=== PATIENT | female | born 1990 | race Caucasian/White ===

== ENCOUNTER → 2017-04-10 | Outpatient (CLI) | payer BC | END | disposition home or self-care (01) | LOC: C.PAPS 12:02 | PROVIDERS: ATTEND Physician Assistant | DX: Z01.419 Encounter for gynecological examination (general) (routine) without abnormal findings (principal) ==

== ENCOUNTER 2021-06-15 14:43 | Inpatient (IN) ==
[2021-06-15] MEDS ORDERED: BETAMETH SOD PHOS/ACETATE IA 6 MG/ML ONE (15:02)
--- NOTE | 2021-06-15 15:13 | History & Physical Report ---
Date of Service June 15, 2021 Assessment & Plan (1) Vaginal bleeding: Plan: Vaginal bleeding - significant amount of bleeding, gushed through speculum and then continued to trickle from vagina after exam. Will give 1 dose steroids for lung maturity. Discussed recommendation for urgently with patient. Reviewed RBA, consent signed. Recommend delivery now due to severity of vaginal bleeding. Concerned for placental abruption vs vasa previa. History of Present Illness Chief Complaint: vaginal bleeding Primary Care Provider: Shona Duran PA-C 30yo @ 34 09/09, presented emergently to L&D after gush of blood with coughing. Uncomplicated , until diagnosed 2 days ago with COVID - symptoms coughing and body aches. No fever. + movement, not feeling ctx. No leaking of clear fluid. Home Medications Medication Instructions Recorded Confirmed Type prenat.vits,janelle,rok-mvnq-qmoyp 1 tab PO DAILY 06/15/21 06/15/21 History Patient History Surgical History (Updated 06/15/21 @ 15:13 by Cintia Bruce RN) No history of previous surgery Family History Grandfather Diabetes Social History (Updated 12/05/20 @ 13:20 by Lora Trivedi) Smoking Status: Never smoker marital status: Single marital status details: FOB: [birth year] (31) [phone] Current Living Situation: Significant Other Current Living Situation Comment: lives with FOB and 1 dog. 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 There is large amount of pooling of blood, bright red, during exam. Constitutional: WD/WN, vitals as above Respiratory: normal respiratory effort, lungs clear to auscultation no respiratory distress Cardiovascular: Rate/Rhythm: regular rate and regular rhythm Gastrointestinal (Abdomen): Inspection/Auscultation: abdomen normal to inspection Percussion/Palpation: abdomen soft; abdomen nontender Gravid. Nontender. Skin: no rashes, warm and dry Psychiatric: A+Ox3, euthymic affect Results & Data ([facility]) Vital Signs (Past 12 Hours) Vital Signs Pulse BP 06/15/21 15:00 118 H 120/88 Coding Level of Care Code None Diagnoses Vaginal bleeding N93.9
[2021-06-15] MEDS ORDERED: LACTATED RINGER'S 1,000 ML IV SCH ×2 (15:15→18:41)
[2021-06-15] MEDS ORDERED: BETAMETH SOD PHOS/ACETATE IA 6 MG/ML IM STA (15:15)
[2021-06-15] MEDS ORDERED: SODIUM CHLORIDE 0.9% 250 ML IV PRN ×2 (15:30→16:39)
[2021-06-15] MEDS ORDERED: ceFAZolin 2000MG 2,000 MG/15 ML SYR IV SCH (15:30)
[2021-06-15 15:32] LABS: Basophils # (auto) 0.01 K/uL (0-0.2); Basophils % (auto) 0.1 %; Eosinophils # (auto) 0.01 K/uL (0-0.5); Eosinophils % (auto) 0.1 %; Hematocrit (blood only) 36.7 % (37-47); Hemoglobin 12.4 g/dL (12.0-16.0); Immature Granulocytes # (auto) 0.02 K/uL (0.00-0.02); Immature Granulocytes % (auto) 0.3 %; Lymphocytes # (auto) 1.92 K/uL (1.2-3.4); Lymphocytes % (auto) 24.6 %; Mean Corpuscular Hemoglobin 30.5 pg (25-34); Mean Corpuscular Hgb Conc 33.8 g/dL (32-36); Mean Corpuscular Volume 90.2 fL (80-100); Mean Platelet Volume 11.5 fL (7.4-10.4); Monocytes % (auto) 15.3 %; Neutrophils # (auto) 4.66 K/uL (1.4-6.5); Neutrophils % (auto) 59.6 %; Platelet Count 247 K/uL (130-400); RDW Coefficient of Variation 13.2 % (11.5-14.5); RDW Standard Deviation 43.3 fL (36.4-46.3); Red Blood Count 4.07 M/uL (4.2-5.4); White Blood Count 7.82 K/uL (4.8-10.8)
[2021-06-15] MEDS ORDERED: CITRIC ACID/SODIUM CITRATE 15 ML UDC PO SCH (15:45)
[2021-06-15] MEDS ORDERED: MoRPHine SULFATE PF 1 MG/ML 10 ML AMP/VIAL ONE (15:48)
[2021-06-15] MEDS ORDERED: fentaNYL citrate 100 MCG/2 ML VIAL ONE (15:48)
[2021-06-15 15:52] LABS: Albumin Globulin Ratio 0.9 (0.9-2); Albumin Level 2.9 gm/dl (3.4-5.0); BUN Creatinine Ratio 8.2 (10-20); Bilirubin,Total 0.3 mg/dl (0.2-1.0); Calcium 8.2 mg/dl (8.5-10.1); Creatinine Clr Calc Pharmacy 155.2 ml/min; Est GFR (Non-African American) 121.7 ml/min; Globulin 3.3 gm/dl (2.5-4.0); Potassium 4.1 mmol/L (3.5-5.1); Total Protein 6.2 gm/dl (6.0-8.3)
--- NOTE | 2021-06-15 15:52 | Anesthesiology Consultation ---
Date of Service June 15, 2021 Assessment & Plan Chart Review Chart Review: Acceptable Risk for Surgery and Patient NOT seen in Pre Admission Testing Consults Requested none History Surgery Operation Date: 06/15/21 15:30 Proposed Procedures p Section in LD - Dawna Salcido DO Andrew Height/Weight Height: 5 ft 4 in Weight: 100.244 kg Allergies Allergy/AdvReac Type Severity Reaction Status Date / Time No Known Allergies Allergy Verified 06/15/21 15:39 Medications Home Medications Medication Instructions Recorded Confirmed Last Taken prenat.vits,janelle,nqy-dfpo-koxkw 1 tab PO DAILY 06/15/21 06/15/21 06/14/21 22:00 Active Medications Generic Name Dose Route Start Last Admin Trade Name Freq PRN Reason Stop Dose Admin Lactated Ringer's 1,000 mls @ 999 mls/hr 06/15/21 15:15 06/15/21 15:05 Lr IV 06/15/21 16:15 999 mls/hr .Q1H1M ULYSSES Administration Past Family History Family History Grandfather Diabetes Past Surgical History Surgical History No history of previous surgery Social History Smoking Status: Never smoker Hx Alcohol Use: No Hx Substance Use: No Physical Exam Vital Signs Last Vital Signs Pulse 92 H 06/15/21 15:11 BP 113/76 06/15/21 15:11 Pulse Ox 92 06/15/21 15:09 Testing Laboratory Results 06/15/21 15:17
[2021-06-15 16:01] LABS: Fibrinogen 394 mg/dl (184-400); INR 0.9 (0.9-1.1); Partial Thromboplastin Time 25.8 Seconds (21.0-31.0); Prothrombin Time 9.2 Seconds (9.0-12.0)
[2021-06-15] MEDS ORDERED: ONDANSETRON INJ 2 MG/ML 2 ML VIAL ONE (16:37)
[2021-06-15] MEDS ORDERED: OXYTOCIN 10 UNITS/ML 10ML VIAL ONE (16:59)
[2021-06-15 17:11] LABS: Base Excess Cord Venous Blood -3.7 mEq/L (-7.7-1.9); Cord Venous Blood HCO3 26 mmol/L (18.4-26.8); Cord Venous Blood PCO2 64 mmHg (30.4-57.2); Cord Venous Blood pH 7.22 (7.20-7.44)
[2021-06-15 17:12] LABS: Base Excess Cord Arterial Bld -6.7 mEq/L (-9-1.8); CO2 Cord Arterial Blood 57 mmHg (39.1-73.5); HCO3 Cord Arterial Blood 22 mmol/L (19.7-28.5); PO2 Cord Arterial Blood 16 mmHg (4.1-31.7)
[2021-06-15 17:17] LABS: Oxygen Sat Cord Arterial Blood < 60.0 % (<60)
[2021-06-15 17:20] LABS: Cord Venous Blood PO2 < 10 mmHg (14.1-43.3)
[2021-06-15 17:21] LABS: O2 Saturation Cord Venous Bld < 60.0 % (<68)
--- NOTE | 2021-06-15 17:46 | Operative Report ---
PG Post Operative Report Pre & Post Diagnosis Operation Date: 06/15/21 15:30 Pre-Op Diagnosis: Placental abruption Post-Op Diagnosis: Placental abruption I identified the patient and participated in the time-out.: Yes Procedure Operation Date: 06/15/21 15:30 Actual Procedures Primary Low Transverse Section in LD live female child at 1623 in OR 2 - Dawna Morales DO Surgeon Dawna Morales DO Coal Cager Aubrey Denton MD Estimated Blood Loss 600 Findings Consistent with Post-Op Diagnosis Viable female . Apgars Weight pending, please see nursery records. Retroplacental blood clot approx 150cc at time of hysterotomy. Specimens placenta, cord blood, cord gas Drains almanzar clear yellow Anesthesia Type Spinal Complications none Disposition Accompanied Patient To Recovery: No Indications 30yo @ 34 5/7, presented with sudden-onset vaginal bleeding in the setting of active COVID infection. Taken to OR for presumed placental abruption, which was confirmed during surgery via visualization of large retroplacental clot. Description of Procedure The patient was seen in her labor and delivery room, risks benefits and alternatives to surgery were reviewed. Informed consent obtained. Questions were answered. She was taken to the operating room, spinal anesthesia was administered. She was then prepared and draped in the usual sterile fashion in the supine position with a leftward tilt. Timeout was confirmed. A Pfannenstiel skin incision was made with a scalpel, and carried through to the underlying layer of fascia. Fascia was nicked at midline, and this incision was extended bilaterally. The superior aspect of the fascial incision was grasped with Haroon clamps x2, elevated off the underlying rectus abdominis muscles, and dissected sharply and bluntly. In similar fashion, the inferior aspect of the fascial incision was dissected. The rectus abdominis muscles were , and the peritoneum was entered bluntly digitally. This was extended bilaterally. The bladder flap was taken down carefully using Metzenbaum scissors. Using a new scalpel, a low transverse uterine incision was created. There was a 150cc blood clot that came directly out of hysterotomy incision. This was followed by clear amniotic fluid. The was delivered from a cephalic presentation. The head delivered, followed by shoulders and body. The cord was doubly clamped and cut, and the infant was handed off to the waiting telecommunications network planner. A segment was retained for cord gases. Cord blood was obtained. The placenta was delivered spontaneously intact. The uterus was exteriorized, and cleared of all clots and debris. The hysterotomy incision was r eapproximated using 0 Vicryl in a running locked stitch. A second layer of the same suture was used to imbricate the incision. Posterior uterus was evaluated and normal. The uterus was returned to the abdomen, and gutters were cleared of clots and debris. Excellent hemostasis was observed. The fascial incision was reapproximated using 0 Vicryl in a running stitch. The subcutaneous tissue was irrigated, and reapproximated using 2-0 plain gut in a running stitch. The skin was reapproximated using 4-0 Vicryl in a running subcuticular stitch. Steri-Strips and a bandage were applied. The patient tolerated the procedure well, and will be taken to the recovery area in stable and good condition. I attest to the content of the Intraoperative Record and any orders documented therein. Any exceptions are noted below. OB Procedure Charges 06780
[2021-06-15] MEDS ORDERED: NALOXONE HCL 0.08 MG in SYRINGE 1.8 ML IV PRN (17:57)
[2021-06-15] MEDS ORDERED: ePHEDrine sulfate 50 MG/ML AMP IV PRN (17:57)
[2021-06-15] MEDS ORDERED: ACETAMINOPHEN 1000 MG/100 ML IV IV PRN (17:57)
[2021-06-15] MEDS ORDERED: diphenhydrAMINE 50 MG/ML VIAL IV PRN (17:57)
[2021-06-15] MEDS ORDERED: MoRPHine SULFATE PF 1 MG/ML 10 ML AMP/VIAL INT SPINAL ONE (17:57)
[2021-06-15] MEDS ORDERED: NALOXONE HCL 0.4 MG/1 ML VIAL/CARP IV PRN (17:57)
[2021-06-15] MEDS ORDERED: LACTATED RINGER'S 500 ML IV PRN (17:57)
[2021-06-15] MEDS ORDERED: PROMETHAZINE HCL 25 MG in SODIUM CHLORIDE 0.9% 50 ML IV PRN ×2 (17:57→18:41)
[2021-06-15] MEDS ORDERED: ONDANSETRON INJ 2 MG/ML 2 ML VIAL IV PRN (17:57)
[2021-06-15] MEDS ORDERED: NALBUPHINE HCL INJ 10 MG/ML AMP IV PRN (17:57)
[2021-06-15] MEDS ORDERED: NALOXONE HCL 1 MG in SODIUM CHLORIDE 0.9% 1000ML 1,000 ML IV PRN (17:57)
[2021-06-15] MEDS ORDERED: HYDROmorphone INJ 0.5 MG/0.5 ML SYR IV PRN (17:57)
--- NOTE | 2021-06-15 17:59 | Anesthesiology Progress Note ---
Date of Service June 15, 2021 Anesthesia Post Procedure Vital Signs Vital Signs: Temp Pulse Resp BP Pulse Ox 06/15/21 15:11 92 H 113/76 06/15/21 15:09 87 92 06/15/21 15:08 95 H 91 06/15/21 15:00 118 H 120/88 06/15/21 14:48 37.2 C 115 H 20 150/94 H Transfer of Care Handoff Completed per policy Notes Mental Status: alert / awake / arousable and participated in evaluation Nausea / Vomiting: adequately controlled Pain: adequately controlled Airway Patency, RR, SpO2: stable & adequate BP & HR: stable & adequate Hydration State: stable & adequate Neuraxial Anesthesia: was administered and sensory block is resolving Anesthetic Complications: no major complications apparent and Pt Satisfied with anesthetic care
[2021-06-15] MEDS ORDERED: SODIUM CHLORIDE 0.9% 1000ML 1,000 ML IV SCH (18:00)
[2021-06-15] MEDS ORDERED: DC INTRASPINAL MORPHINE SCH (18:00)
[2021-06-15] MEDS ORDERED: NO NARCOTICS OR SEDATIVES SCH (18:00)
[2021-06-15] MEDS ORDERED: KETOROLAC 30 MG/ML VIAL ONE (18:29)
[2021-06-15] MEDS ORDERED: HYDROCORTISONE ACETATE 25 MG SUPP PR PRN (18:41)
[2021-06-15] MEDS ORDERED: SENNA 8.6 MG TAB PO PRN (18:41)
[2021-06-15] MEDS ORDERED: MAGNESIUM HYDROXIDE SUSP 30 ML UDC PO PRN (18:41)
[2021-06-15] MEDS ORDERED: BENZOCAINE 20% AER SPR 82.5 GM CAN EXT PRN (18:41)
[2021-06-15] MEDS ORDERED: miSOPROStoL 200 MCG TAB PR ONE (18:46)
[2021-06-15] MEDS ORDERED: CARBOPROST TROMETHAMINE 250 MCG/ML AMPUL IM ONE (18:47)
--- NOTE | 2021-06-15 18:50 | Obstetrical Progress Note ---
Date of Service June 15, 2021 Assessment & Plan Admission and Anticipated Discharge Date Admission Date: June 15, 2021 Subjective Called to bedside by RN for expression of clots during fundal massage. Patient awake and talking, vitals wnl. Fundus firm. Approx 100cc dark red clots on chux and expressed, no active red bleeding. Gave cytotec and hemabate. Will check CBC. Recheck of patient's status by phone approx 20-30 min later, no further clots per RN. Results & Data ([facility]) Vital Signs (Past 12 Hours) Vital Signs Temp Pulse Resp BP Pulse Ox 06/15/21 18:20 96 H 18 112/60 99 06/15/21 18:10 82 18 123/84 99 06/15/21 18:00 75 18 116/86 99 06/15/21 17:50 79 18 127/84 99 06/15/21 17:40 89 18 116/78 99 06/15/21 17:30 36.5 C 93 H 18 115/80 99 06/15/21 15:11 92 H 113/76 06/15/21 15:09 87 92 06/15/21 15:08 95 H 91 06/15/21 15:00 118 H 120/88 06/15/21 14:48 37.2 C 115 H 20 150/94 H PG Care Time/CCT Total # of Minutes Spent Total Time Spent with Patient: Total time spent is greater than 50% in coordination of care (as documented) at patient's floor/unit and/or counseling patient: Coding Level of Care Code None
[2021-06-15] MEDS ORDERED: KETOROLAC 30 MG/ML VIAL IV PRN (18:55)
[2021-06-15 19:10] LABS: Hematocrit (blood only) 35.8 % (37-47); Hemoglobin 11.9 g/dL (12.0-16.0); Mean Corpuscular Hemoglobin 29.8 pg (25-34); Mean Corpuscular Hgb Conc 33.2 g/dL (32-36); Mean Corpuscular Volume 89.7 fL (80-100); Mean Platelet Volume 10.9 fL (7.4-10.4); Platelet Count 219 K/uL (130-400); RDW Coefficient of Variation 12.9 % (11.5-14.5); RDW Standard Deviation 42.3 fL (36.4-46.3); Red Blood Count 3.99 M/uL (4.2-5.4); White Blood Count 14.46 K/uL (4.8-10.8)
[2021-06-15] MEDS: OXYTOCIN 30 UNITS in LACTATED RINGER'S 1,000 ML IV SCH (19:33)
[2021-06-15] MEDS: DOCUSATE SODIUM 100 MG CAP PO SCH (21:25)
[2021-06-15] MEDS: SIMETHICONE 80 MG CHEW PO SCH (21:25)
[2021-06-15] MEDS ORDERED: CARBOPROST TROMETHAMINE 250 MCG/ML AMPUL ONE (23:29)
[2021-06-15] MEDS ORDERED: miSOPROStoL 200 MCG TAB ONE (23:29)
[2021-06-16] MEDS: OXYTOCIN 30 UNITS in LACTATED RINGER'S 1,000 ML IV SCH (04:33)
--- NOTE | 2021-06-16 06:00 | Obstetrical Progress Note ---
Date of Service <Ayla Rivera - Last Filed: 06/16/21 07:48> June 16, 2021 Assessment & Plan <Ayla Rivera - Last Filed: 06/16/21 07:48> (1) Encounter for care and examination after delivery: (2) Placental abruption: (3) Status post section: (4) COVID-19: 30 yo post op day1 from c/s after placental abruption, delivery, COVID19 positive, doing well. -Continue routine post care. -vital signs reviewed and WNL (Tmax 36.8) -Blood Type O+, GBS unknown, Rubella immune -Encourage ambulation, monitor and control pain with Motrin, tylenol PRN, resume regular diet, monitor lochia -encourage bottle feeding -hemoglobin 11.9 -will order lozenges Day #:: 1 <Dawna Morales, - Last Filed: 06/16/21 07:57> (1) Encounter for care and examination after delivery: (2) Placental abruption: (3) Status post section: (4) COVID-19: Subjective <Ayla Rivera - Last Filed: 06/16/21 07:48> Ambulation: limited ambulation Voiding: voiding difficulty Passing Gas:: Yes Diet Tolerance:: clear liquids Lochia:: Small Feeding Type:: bottle feeding Current Pain Level(1-10): 0 Review of Systems Vomiting 2/2 pain with movement, sore throat Denies fever, chills, sweats Denies shortness of breath, difficulty breathing, chest pain, palpitations, chest pressure. Denies breast pain. Denies dysuria. Denies headache or changes in vision. Physical Exam <Ayla Miguel - Last Filed: 06/16/21 07:48> General: Alert, oriented. No acute distress. Cardiac: Regular rate and rhythm, no murmurs/rubs/gallops. Respiratory: Clear to auscultation bilaterally a/p, no wheezes/rales/rhonchi. No increased work of breathing. Symmetrical chest rise. No respiratory distress. Abdomen: Soft, nontender, nondistended. Bowel sounds present. Uterus: Uterine fundus firm, palpable at umbilicus. Surgical scar clean and healing well. Lower Extremities: No lower extremity edema or swelling. No deep calf pain. Fritz's negative bilaterally. <Dawna Morales, DO - Last Filed: 06/16/21 07:57> General: Alert, oriented. No acute distress. Cardiac: Regular rate and rhythm, no murmurs/rubs/gallops. Respiratory: Clear to auscultation bilaterally a/p, no wheezes/rales/rhonchi. No increased work of breathing. Symmetrical chest rise. No respiratory distress. Abdomen: Soft, nontender, nondistended. Bowel sounds present. Uterus: Uterine fundus firm, palpable below umbilicus. Surgical scar clean and healing well. Lower Extremities: No lower extremity edema or swelling. No deep calf pain. Fritz's negative bilaterally. Results & Data ([facility]) <Ayla Rivera, DO - Last Filed: 06/16/21 07:48> Vital Signs (Past 12 Hours) Vital Signs Temp Pulse Pulse Resp BP BP Pulse Ox 06/16/21 05:05 18 93 06/16/21 04:35 36.8 C 102 H 18 121/80 93 06/16/21 03:25 18 93 06/16/21 02:15 18 93 06/16/21 01:10 18 93 06/16/21 00:20 18 93 06/15/21 23:40 37 C 82 18 113/81 93 06/15/21 23:20 18 93 06/15/21 22:10 18 93 06/15/21 21:20 37 C 105 H 18 132/84 94 06/15/21 19:30 36.4 C L 88 18 117/85 95 06/15/21 19:00 36.5 C 87 18 119/82 96 06/15/21 18:30 91 H 18 123/84 94 06/15/21 18:20 96 H 18 112/60 99 06/15/21 18:10 82 18 123/84 99 <Dawna Morales, DO - Last Filed: 06/16/21 07:57> Co-Signing Physician Notes Resident Physician Supervision Note: I was present with Dr. Rivera during the history and exam. I discussed the case with the resident and agree with the findings and plan as documented in the note. Any exceptions or clarifications are listed here: POD#1 doing well. Urine output overnight 150cc, Hgb appropriate postop drop, gave IV bolus and will continue to monitor. Encourage increase in PO fluid intake. Documented By: Dawna Morales DO Resident Activity Tracking <Ayla Rivera DO - Last Filed: 06/16/21 07:48> Resident Involvement: Resident Care Provided Care Provided: Adult Hospital Medicine
[2021-06-16] MEDS ORDERED: LACTATED RINGER'S 500 ML IV ONE ×2 (06:30→12:28)
[2021-06-16 07:30] LABS: Hemoglobin 10.5 g/dL (12.0-16.0); Mean Corpuscular Hgb Conc 33.9 g/dL (32-36); Mean Corpuscular Volume 88.6 fL (80-100); Mean Platelet Volume 11.7 fL (7.4-10.4); Platelet Count 241 K/uL (130-400); RDW Coefficient of Variation 12.9 % (11.5-14.5); RDW Standard Deviation 41.8 fL (36.4-46.3); White Blood Count 14.81 K/uL (4.8-10.8)
[2021-06-16 07:31] LABS: Basophils # (auto) 0.01 K/uL (0-0.2); Basophils % (auto) 0.1 %; Immature Granulocytes # (auto) 0.04 K/uL (0.00-0.02); Immature Granulocytes % (auto) 0.3 %; Lymphocytes # (auto) 1.48 K/uL (1.2-3.4); Monocytes # (auto) 1.26 K/uL (0.11-0.59); Monocytes % (auto) 8.5 %; Neutrophils # (auto) 12.02 K/uL (1.4-6.5); Neutrophils % (auto) 81.1 %
[2021-06-16] MEDS ORDERED: COUGH DROP (SUGAR FREE) LOZ 24 LOZ/1 BOX BUCCAL PRN (07:49)
[2021-06-16] MEDS ORDERED: COUGH DROP (SUGAR FREE) LOZ 24 LOZ/1 BOX BUCCAL ONE (07:56)
[2021-06-16] MEDS: SIMETHICONE 80 MG CHEW PO SCH ×3 (08:36→16:42)
[2021-06-16] MEDS: DOCUSATE SODIUM 100 MG CAP PO SCH ×2 (08:36→22:00)
[2021-06-16] MEDS: FERROUS SULFATE 325 MG TAB PO SCH (08:36)
[2021-06-16] MEDS: PRENATAL VITAMIN 1 TAB PO SCH (08:37)
[2021-06-16] MEDS ORDERED: DIPHTHERIA/TETANUS/PERTUSSIS 0.5 ML SYR/VIAL IM ONE (09:00)
[2021-06-16] MEDS ORDERED: KETOROLAC 30 MG/ML VIAL IV PRN (11:00)
[2021-06-16] MEDS ORDERED: ONDANSETRON INJ 2 MG/ML 2 ML VIAL IV PRN (11:57)
[2021-06-16] MEDS ORDERED: PROMETHAZINE HCL 25 MG in SODIUM CHLORIDE 0.9% 50 ML IV PRN (11:57)
[2021-06-16] MEDS ORDERED: diphenhydrAMINE Capsule 25 MG CAP PO PRN (11:57)
[2021-06-16] MEDS ORDERED: oxyCODONE/ACETAMINOPHEN 5mg/325mg TAB PO PRN (11:57)
[2021-06-16] MEDS ORDERED: diphenhydrAMINE 50 MG/ML VIAL IV PRN (11:57)
[2021-06-16] MEDS: IBUPROFEN 600 MG TAB PO PRN ×2 (14:11→19:50)
[2021-06-16] MEDS ORDERED: bisacodyL 5 MG TABEC PO SCH (20:00)
[2021-06-17] MEDS: DOCUSATE SODIUM 100 MG CAP PO SCH ×4 (05:07→21:04)
[2021-06-17] MEDS: SIMETHICONE 80 MG CHEW PO SCH ×5 (05:08→21:04)
--- NOTE | 2021-06-17 05:42 | Obstetrical Progress Note ---
Date of Service June 17, 2021 Assessment & Plan (1) Status post section: Doing well PP. Continue routine care. covid sx stable. Routine care. Day #:: 2 Subjective Ambulation: ambulating normally Voiding: no voiding problems Passing Gas:: Yes Diet Tolerance:: regular diet Lochia:: Small Feeding Type:: breast feeding Doing well. ONly taking motrin for pain. Physical Exam Constitutional WD/WN, vitals as above Cardiovascular Extremities: + edema (+1); no calf tenderness Gastrointestinal (Abdomen) soft, nt, nd ff/nt at u incision c/d/i Results & Data ([facility]) Vital Signs (Past 12 Hours) Vital Signs Temp Pulse Resp BP Pulse Ox 06/16/21 23:10 36.6 C 78 16 129/79 98 06/16/21 19:00 36.7 C 129/84 96
[2021-06-17] MEDS: IBUPROFEN 600 MG TAB PO PRN ×2 (08:54→12:53)
[2021-06-17] MEDS: PRENATAL VITAMIN 1 TAB PO SCH ×2 (08:57→09:01)
[2021-06-17] MEDS: FERROUS SULFATE 325 MG TAB PO SCH (08:57)
[2021-06-17] MEDS ORDERED: bisacodyL 10 MG SUPP PR PRN (17:39)
[2021-06-18] MEDS: IBUPROFEN 600 MG TAB PO PRN (07:57)
[2021-06-18] MEDS: FERROUS SULFATE 325 MG TAB PO SCH (08:02)
[2021-06-18] MEDS: DOCUSATE SODIUM 100 MG CAP PO SCH (08:02)
[2021-06-18] MEDS: PRENATAL VITAMIN 1 TAB PO SCH (08:03)
[2021-06-18] MEDS: SIMETHICONE 80 MG CHEW PO SCH (08:03)
--- NOTE | 2021-06-18 09:36 | Obstetrical Progress Note ---
Date of Service June 18, 2021 Assessment & Plan (1) Status post section: (2) Placental abruption: will plan dc home. stable, routine care. bp all normal except last, nursing to take one more before dc home and if needed can plan office bp check. instructions reviewed. f/u 6 wk pp check reviewed. scripts sent yesterday by Dr. Palmer. Day #:: 3 Subjective Ambulation: ambulating normally Voiding: no voiding problems Passing Gas:: Yes Diet Tolerance:: regular diet Lochia:: Small Feeding Type:: breast feeding pain well controlled. last bp was before pain meds and pt anxious re: d/c, wants to go home. breast pumping. Constitutional: + as per Subjective / HPI Physical Exam Constitutional WD/WN, vitals as above Respiratory normal respiratory effort, lungs clear to auscultation Cardiovascular Rate/Rhythm: regular rate and regular rhythm Gastrointestinal (Abdomen) Inspection/Auscultation: abdomen normal to inspection and + abdominal surgical incision (c/d/i with steris) Percussion/Palpation: abdomen soft Fundus firm 2cm down Musculoskeletal nt calves no edema Neurologic grossly normal Psychiatric A+Ox3, euthymic affect Results & Data ([facility]) Vital Signs (Past 12 Hours) Vital Signs Temp Pulse Resp BP 06/18/21 07:45 98.1 F 75 20 139/95 06/18/21 00:20 97.9 F 92 H 16 119/83
--- NOTE | 2021-06-27 00:22 | Discharge Summary ---
Date of Service June 27, 2021 Admission HPI Per Admitting Provider 30yo @ 34 09/09, presented emergently to L&D after gush of blood with coughing. Uncomplicated , until diagnosed 2 days ago with COVID - symptoms coughing and body aches. No fever. + movement, not feeling ctx. No leaking of clear fluid. Discharge Data Consultations 06/15/21 15:04 Consult Anesthesiology Stat Procedures Performed Operation Date: 06/15/21 15:30 Actual Procedures Primary Low transverse Section in LD live female child at 1623 in OR 2 - Dawna Morales DO Hospital Course (1) Placental abruption: Admitted with vaginal bleeding in setting of COVID+, taken to OR for urgent section for placental abruption. Routine postop recovery, DC home POD3. Followup in office for BP check 1w and PP visit 6w. Please see chart for details. Coding Level of Care Code None Diagnoses Placental abruption O45.90
== END 2021-06-18 10:25 | disposition home or self-care (01) | DRG 786 ==
LOC: OPB 14:43 → 4W 14:44 → 3N 17:23